=== PATIENT | male | born 1960 | race Caucasian/White ===

== ENCOUNTER 2019-03-20 08:48 | Emergency (ER) | payer BC ==
[2019-03-20 09:01] VITALS: BP 113/78
--- NOTE | 2019-03-20 09:21 | UC ---
Respiratory Complaint HPI - HPI Summary HPI Summary: Mr. Salguero presented symptoms of URI for couple of weeks. He felt that he was getting better and in the last 24 hours or so he started to feel worse again. He is coughing and feeling congested. His cough is nonproductive and he does not think he's had any fevers. - History of Current Complaint Chief Complaint: UCRespiratory Stated Complaint: FLU LIKE SYMPTOMS Time Seen by Provider: 03/20/19 09:01 Pain Intensity: 0 - Allergies/Home Medications Allergies/Adverse Reactions: Allergies Allergy/AdvReac Type Severity Reaction Status Date / Time No Known Allergies Allergy Verified 03/20/19 09:00 Home Medications: Home Medications Cetirizine HCl [Zyrtec] 1 tab PO ONCE PRN 03/20/19 [History Confirmed 03/20/19] PMH/Surg Hx/FS Hx/Imm Hx - Additional Past Medical History Additional PMH: Chronic back pain - Surgical History Surgical History: Yes Surgery Procedure, Year, and Place: RIGHT FOREARM TO REMOVE BENIGN CYST - Social History Alcohol Use: Weekly Alcohol Amount: few glasses a few times a week Substance Use Type: None Smoking Status (MU): Never Smoked Tobacco - Immunization History Most Recent Tetanus Shot: Thinks is UTD Review of Systems All Other Systems Reviewed And Are Negative: Yes Constitutional: Positive: Fatigue ENT: Positive: Sore Throat, Nasal Discharge, Sinus Congestion Respiratory: Positive: Cough Physical Exam - Summary Physical Exam Summary: He is nontoxic in appearance with stable vitals. Triage Information Reviewed: Yes Appearance: Well-Appearing Vital Signs: Initial Vital Signs Temp 98 F 03/20/19 08:55 Pulse 67 03/20/19 08:55 Resp 18 03/20/19 08:55 BP 113/78 03/20/19 08:55 Pulse Ox 97 03/20/19 08:55 Vital Signs Reviewed: Yes ENT: Positive: Pharyngeal erythema, Nasal congestion, TMs normal Neck: Positive: Supple, Nontender, No Lymphadenopathy Respiratory: Positive: Lungs clear, Normal breath sounds, No respiratory distress, No accessory muscle use Cardiovascular: Positive: RRR Respiratory Course/Dx - Course Course Of Treatment: I think this is viral URI. He may have a secondary bacterial bronchitis. He is a nonsmoker and has no pulmonary problems and I will treat him symptomatically. - Differential Dx/Diagnosis Provider Diagnosis: Bronchitis Discharge ED - Sign-Out/Discharge Documenting (check all that apply): Patient Departure All imaging exams completed and their final reports reviewed: No Studies - Discharge Plan Condition: Stable Disposition: HOME Referrals: Benjy Sanders MD [Primary Care Provider] - - Billing Disposition and Condition Condition: STABLE Disposition: Home
== END 2019-03-20 09:25 | disposition home or self-care (01) ==
LOC: UCEAST 08:48
DX: J40 Bronchitis, not specified as acute or chronic (principal); J39.2 Other diseases of pharynx; J02.9 Acute pharyngitis, unspecified; R09.89 Other specified symptoms and signs involving the circulatory and respiratory systems; G89.29 Other chronic pain; M54.9 Dorsalgia, unspecified
CPT/HCPCS: 99212; G0463

== ENCOUNTER 2019-07-29 08:32 | Day surgery (SDC) | payer BC ==
[2019-07-29] MEDS ORDERED: ceFAZolin 2 GM in NS PREMIX(*) 2 GM/100 ML BAG IVPB ONE (09:45)
[2019-07-29] MEDS ORDERED: Bupivacaine 0.5%* 50 ML MDV VIAL ONE (09:53)
[2019-07-29] MEDS ORDERED: Famotidine IV* 10 MG/ML 2 ML (20 mg) ONE (12:09)
[2019-07-29] MEDS ORDERED: fentaNYL* 50 MCG/ML 2 ML VIAL (100 MCG VIAL) ONE ×3 (12:20→14:20)
[2019-07-29] MEDS ORDERED: Midazolam* 1 MG/ML 2 ML VIAL (2 MG) ONE (12:20)
[2019-07-29] MEDS ORDERED: Rocuronium* 10 MG/ML VIAL ONE (12:20)
[2019-07-29] MEDS ORDERED: Naloxone* 0.4 MG/ML 1 ML VIAL IV PRN (12:58)
[2019-07-29] MEDS ORDERED: HYDROcodone/ACETAMIN 5-325 MG* 1 TAB PO PRN (12:58)
[2019-07-29] MEDS ORDERED: fentaNYL* 50 MCG/ML 2 ML VIAL (100 MCG VIAL) IV PRN (12:58)
[2019-07-29] MEDS ORDERED: Acetaminophen TAB* 325 MG PO PRN (12:58)
[2019-07-29] MEDS ORDERED: Ondansetron INJ* 2 MG/ML VIAL IV PRN (12:58)
[2019-07-29] MEDS ORDERED: diPHENhydraMINE IV* 50 MG/ML 1 ml VIAL (BENADRYL) IV PRN (12:58)
[2019-07-29] MEDS ORDERED: DiMENhydriNATE IV* 50 MG/ML VIAL IV PUSH PRN (12:58)
[2019-07-29] MEDS ORDERED: Ketorolac INJ* 30 MG/ML 1 ML VIAL ONE (13:09)
[2019-07-29] MEDS ORDERED: Propofol* 10 MG/ML 20 ML BTL ONE (13:09)
[2019-07-29] MEDS ORDERED: Dexamethasone IV* 4 MG/ML 1 ML (4 MG) ONE (13:09)
[2019-07-29] MEDS ORDERED: Ondansetron INJ* 2 MG/ML VIAL ONE ×2 (13:09→14:21)
[2019-07-29] MEDS ORDERED: Lidocaine 2% PF * 5 ML VIAL ONE (13:09)
--- NOTE | 2019-07-29 13:39 | BRIEFOPN ---
Brief Operative/Procedure Note - Operation Details Pre-Op Diagnosis: Left inguinal hernia Post-Op Diagnosis: same Procedures: robotic left inguinal hernia repair w/ mesh Surgeon(s)/Proceduralists: Wilfredo. Assist: CHYNA Wyatt Anesthesia: GET. IVF: 1000 ml RL Estimated Blood Loss: < 20 ml Findings: as above Specimen(s)/Culture(s) Description: none Complications: none
[2019-07-29] MEDS ORDERED: DiMENhydriNATE IV* 50 MG/ML VIAL ONE (14:20)
[2019-07-29] MEDS ORDERED: HYDROcodone/ACETAMIN 5-325 MG* 1 TAB ONE (14:20)
[2019-07-29] MEDS ORDERED: Polyethylene Glycol 3350* 17 GM PACKET PO ONE (14:40)
[2019-07-29 15:48] VITALS: BP 136/86
--- NOTE | 2019-07-30 00:46 | OP ---
DATE OF OPERATION: 07/29/19 [facility] DATE OF : 58 SURGEON: Eleazar Villalobos MD TOUR CONDUCTOR: CHYNA Mccabe PRE-OP DIAGNOSIS: Symptomatic left inguinal hernia. POST-OP DIAGNOSIS: Symptomatic left inguinal hernia. OPERATIVE PROCEDURE: Robotic repair of left inguinal hernia with mesh. INDICATIONS FOR PROCEDURE: Symptomatic left inguinal hernia, which has been intermittently incarcerating, causing pain. Risks of surgery included, but not limited to bleeding, infection, injury to intraabdominal contents including the bowel, pelvic nerves and vessels, persistent pain, recurrence of the hernia, and medical issues discussed with the patient, who seemed to understand and agreed to the procedure and all questions were answered. DESCRIPTION OF PROCEDURE: The patient was taken to the operating room and placed supine. Preoperative antibiotics were given. After the successful induction of general endotracheal anesthesia, the abdomen was prepped and draped in sterile fashion. The peritoneal cavity was entered using a 5 mm bladeless Optiview trocar and pneumo-peritoneum was achieved to 12 mmHg. A camera was placed in the abdomen. The abdomen was scanned. There was no obvious injury from trocar placement. An 8 mm midline and right upper quadrant trocar were placed under direct visualization of the camera and the Optiview was replaced with an 8 mm robotic trocar. The abdomen was scanned, showing only a left inguinal hernia and right inguinal hernia. No injuries were noted. The mesh and suture were brought in under direct visualization of the camera. The robot was brought and docked after the patient was placed in a slight Trendelenburg position. A peritoneum was taken down and the relatively large hernia sac was dissected free from the cord and the surrounding tissues and the ProGrip left-sided mesh was then placed into the hemipelvis covering the femoral direct and indirect spaces. EBL was minimal. Hemostasis was intact. The peritoneum was closed using running 3-0 V-Loc stitch. The abdomen was scanned. The needle was removed. No injuries or abnormalities were noted. The robot was undocked. Pneumoperitoneum was released from the abdomen and the trocars were removed. The skin at each site was closed with 3-0 Monocryl. Glue was applied to the skin. He tolerated the procedure well. [id number]/[facility] #: [id number] [facility]
== END 2019-07-29 15:58 | disposition home or self-care (01) ==
LOC: OR 08:32
PROVIDERS: ATTEND Surgery
DX: K40.90 Unilateral inguinal hernia, without obstruction or gangrene, not specified as recurrent (principal); Z87.891 Personal history of nicotine dependence; M54.5 Low back pain; Z79.891 Long term (current) use of opiate analgesic
CPT/HCPCS: A9270-GY; C1781; J0690; J1100; J1240; J1885; J2250; J2405; J2704; J3010; J3490